=== PATIENT | male | born 1990 | race African-American/Black ===

== ENCOUNTER 2016-06-04 04:01 | Emergency (ER) | payer OTHER ==
[~2016-06-04] VITALS: Ht 185.4 cm; Wt 90.7 kg
[2016-06-04] MEDS ORDERED: LISI-542 PO (04:19)
[2016-06-04] MEDS ORDERED: GABA600T PO (04:19)
[2016-06-04] MEDS ORDERED: CLOTCRE3 TOP (08:17)
[2016-06-04 08:30] VITALS: BP 122/64
== END 2016-06-04 08:31 | disposition home or self-care (01) ==
LOC: M ED 05:29
DX: B35.6 Tinea cruris (principal)